=== PATIENT | female | born 1960 | race Caucasian/White ===

== ENCOUNTER 2022-11-25 07:58 | Inpatient (IN) ==
[2022-11-25 13:56] VITALS: BMI 24.1
[2022-11-25 14:05] LABS: BASOPHILS # (AUTO) 0.1 X10^3/uL (0.0-0.1); BASOPHILS % (AUTO) 0.9 % (0.2-1.0); EOSINOPHILS # (AUTO) 0.4 x10^3/uL (0.0-0.2); EOSINOPHILS % (AUTO) 5.4 % (0.9-2.9); HEMOGLOBIN 12.2 g/dL (12.0-16.0); LYMPHOCYTES # (AUTO) 1.3 X10^3/uL (1.3-2.9); LYMPHOCYTES % (AUTO) 17.4 % (21.0-51.0); MEAN CORPUSCULAR HGB CONC 33.9 g/dL (33.0-35.0); MEAN CORPUSCULAR VOLUME 91.6 fL (80.0-100.0); MONOCYTES # (AUTO) 0.6 x10^3/uL (0.3-0.8); MONOCYTES % (AUTO) 8.6 % (0.0-13.0); NEUTROPHILS # (AUTO) 5.1 x10^3/uL (2.2-4.8); NEUTROPHILS % (AUTO) 67.7 % (42.0-75.0); PLATELET COUNT 225 X10^3/uL (150.0-450.0); RED BLOOD COUNT 3.93 X10^6/uL (3.5-5.4); RED CELL DISTRIBUTION WIDTH 15.5 % (11.6-16.5); WHITE BLOOD COUNT 7.6 X10^3/uL (3.6-10.0)
[2022-11-25] MEDS: LR 1,000 ML IV 1,000 ML IV SCH (14:09)
[2022-11-25 14:14] LABS: BLOOD UREA NITROGEN 10 mg/dL (7-18); CALCIUM 9.1 mg/dL (8.5-10.1); CARBON DIOXIDE 24.7 mmol/L (21-32); CHLORIDE 101 mmol/L (98-107); CREATININE 0.93 mg/dL (0.55-1.02); GLUCOSE 75 mg/dL (65-99); POTASSIUM 4.8 mmol/L (3.5-5.1); SODIUM 136 mmol/L (136-145); eGFR NON BLACK RACES > 60 (>60)
[2022-11-25 15:09] LABS: INR 1.04 (0.8-1.3)
--- NOTE | 2022-11-25 15:28 | EKG ---
Test Reason : CAD Blood Pressure : */* mmHG Vent. Rate : 54 BPM Atrial Rate : 54 BPM P-R Int : 226 ms QRS Dur : 94 ms QT Int : 464 ms P-R-T Axes : 52 43 12 degrees QTc Int : 440 ms Sinus bradycardia with 1st degree AV block Low voltage QRS Cannot rule out Anteroseptal infarct , age undetermined Abnormal ECG No previous ECGs available Confirmed by Jimbo Gold ([id number]) on 11/29/2022 7:25:26 AM Referred By: Confirmed By: Jimbo Gold
[2022-11-25 15:34] LABS: ALANINE AMINOTRANSFERASE 11 Units/L (12-78); ALBUMIN 3.6 g/dL (3.4-5.0); ALKALINE PHOSPHATASE 92 Units/L (46-116); ASPARTATE AMINO TRANSFERASE 19 Units/L (15-37); TOTAL PROTEIN 7.3 g/dL (6.4-8.2)
[2022-11-25] MEDS ORDERED: IOHEXOL 240 MG/ML ONE (15:35)
[2022-11-25] MEDS ORDERED: NORCO 10/325 TAB PO PRN ×2 (15:38→17:22)
[2022-11-25] MEDS: NICOTINE PATCH TD SCH (15:53)
[2022-11-25] MEDS ORDERED: ZANAFLEX PO PRN (17:22)
[2022-11-25] MEDS ORDERED: ZOFRAN INJ 4 MG VIAL IVP PRN (17:27)
[2022-11-25] MEDS: ROBITUSSIN DM PO SCH ×2 (17:48→20:42)
[2022-11-25] MEDS: ROCEPHIN VIAL 1 GRAM 1 G in NS 100 ML IV 100 ML IV SCH (17:48)
--- NOTE | 2022-11-25 20:10 | CT ---
EXAM: CTA BILATERAL LOWER EXTREMITIES WITHOUT AND WITH INTRAVENOUS CONTRASTHISTORY: Ischemic leg. Leg pain.TECHNIQUE: Spiral axial CT images are obtained through the distal abdomen, pelvis and bilateral lower extremities without and with the administration of intravenous contrast. Three-dimensional coronal, sagittal, and oblique images are reformatted.DOSIMETRY: Total DLP 797.02 mGycm; CTDI 23.88 mGyCOMPARISON: None available.FINDINGS:CT ABDOMEN AND PELVIS:GASTROINTESTINAL TRACT: There is diffuse colonic diverticulosis, especially severe in the sigmoid region, without CT evidence for acute diverticulitis. No evidence for bowel herniation, bowel obstruction, appendicitis or colitis.9GENITOURINARY SYSTEM: The kidneys are unremarkable. There is no ureteral calculus or stigmata of obstructive uropathy. The urinary bladder is grossly unremarkable for a non-dedicated exam.REPRODUCTIVE SYSTEM: The uterus and adnexa appear grossly unremarkable for a CT scan. Consider follow-up dedicated imaging as clinically warranted.CT ABDOMEN: The liver, spleen, pancreas, adrenal glands, gallbladder, and inferior vena cava are within normal limits for a CT scan. There is no intra-abdominal or retroperitoneal lymphadenopathy, free fluid, or free air seen. No abdominal herniation is noted.CT PELVIS: No pelvic sidewall or inguinal lymphadenopathy is seen. No inguinal herniation is noted. No free fluid or free air is seen.BONES AND JOINTS: Multilevel DDD is seen throughout the distal thoracic and lumbar spine. The visualized bony structures are otherwise within normal limits.LUNG BASES: The lung bases are clear.CTA ABDOMEN AND PELVIS:There is severe aortoiliac atherosclerosis marked by calcified and noncalcified mural plaques. There is an infrarenal fusiform abdominal aortic aneurysm, measuring approximately 2.9 cm AP by 2.6 cm transverse by 7.4 cm CC. No evidence for aortic dissection or rupture is seen.There is severe atherosclerotic calcified mural plaque seen at the celiac axis, SMA, and renal artery origins, with suggestion of potentially hemodynamically significant severe (estimated greater than 70%) luminal stenoses (estimated critical, greater than 90%, left renal artery stenosis). Symmetrical renal cortical enhancement is seen.The JOE is not visualized and is presumed to be thrombosed. There is severe (estimated greater than 70%), presumably hemodynamically significant, left common iliac artery stenosis. Axial image 74?88, series 8. No iliac artery aneurysm is seen.CTA LOWER EXTREMITIES:There is calcified and noncalcified mural plaque seen in the right SKATING CARHOP, with severe (estimated greater than 70%), presumably hemodynamically significant, luminal stenosis. Axial image 124?134, series 8. There is severe atherosclerotic plaque seen in the left SKATING CARHOP with estimated 50% luminal stenosis, of uncertain hemodynamic significance. Axial image 126?136.There is severe calcified and noncalcified atherosclerotic mural plaque seen at the right SFA origin with critical (greater than 90%) luminal stenosis. Axial image 136?142, series 8. There is calcified and noncalcified atherosclerotic mural plaque seen in the proximal right SFA segments with multifocal critical (estimated 90%) tandem luminal stenoses. Axial image 115?170. There is distal right SFA/proximal popliteal artery occlusion/thrombosis (within the adductor canal), and contiguous occlusion of the right popliteal artery Wallstent. There is occlusion of diseased right tibioperoneal trunk. There is severe atherosclerotic disease of the visualized proximal right runoff vessels with suggestion of reconstitution of contrast opacification in the proximal segments. The middle and distal trifurcation runoff vessels are not the imaged. Correlation with MRI may be beneficial for optimal evaluation of the peripheral arteries.There is severe atherosclerotic disease of the left SFA marked by calcified and noncalcified mural plaques, with severe (estimated 90%) focal segmental stenosis in the middle SFA (axial image 192, series 8), and severe atherosclerotic disease with multilevel moderate to severe segmental stenoses seen throughout the distal left SFA, popliteal artery, and visualized proximal left trifurcation runoff vessels.IMPRESSION:1. Severe aortoiliac atherosclerosis marked by calcified and noncalcified mural plaques.2. Infrarenal fusiform abdominal aortic aneurysm, measuring approximately 2.9 cm AP by 2.6 cm transverse by 7.4 cm CC.3. Severe atherosclerotic calcified mural plaque seen at the celiac axis, SMA, and renal artery origins, with suggestion of potentially hemodynamically significant severe (estimated greater than 70%) luminal stenoses (estimated critical, greater than 90%, left renal artery stenosis). Symmetrical renal cortical enhancement is seen.4. The JOE is not visualized and is presumed to be thrombosed.5. Severe (estimated greater than 70%), presumably hemodynamically significant, left common iliac artery stenosis. Axial image 74?88, series 8.6. Calcified and noncalcified mural plaque seen in the right SKATING CARHOP, with severe (estimated greater than 70%), presumably hemodynamically significant, luminal stenosis. Axial image 124?134, series 8.7. Severe atherosclerotic plaque seen in the left SKATING CARHOP with estimated 50% luminal stenosis, of uncertain hemodynamic significance. Axial image 126?136.8. Severe calcified and noncalcified atherosclerotic mural plaque seen at the right SFA origin with critical (greater than 90%) luminal stenosis. Axial image 136?142, series 8.9. Calcified and noncalcified atherosclerotic mural plaque seen in the proximal right SFA segments with multifocal critical (estimated 90%) tandem luminal stenoses. Axial image 115?170.10. Distal right SFA/proximal popliteal artery occlusion/thrombosis (within the adductor canal), and contiguous occlusion of the right popliteal artery Wallstent.11. Occlusion of diseased right tibioperoneal trunk.12. Severe atherosclerotic disease of the visualized proximal right runoff vessels with suggestion of reconstitution of contrast opacification in the proximal segments.13. Severe atherosclerotic disease of the left SFA marked by calcified and noncalcified mural plaques, with severe (estimated 90%) focal segmental stenosis in the middle SFA (axial image 192, series 8).14. Severe atherosclerotic disease with multilevel moderate to severe segmental stenoses seen throughout the distal left SFA, popliteal artery, and visualized proximal left trifurcation runoff vessels.15. Middle and distal trifurcation runoff vessels are not imaged bilaterally. Correlation with MRI may be beneficial for optimal evaluation of the peripheral arteries.16. Diffuse colonic diverticulosis, especially severe in the sigmoid region, without CT evidence for acute diverticulitis.Electronically signed by: Nazario Lehman (Nov 25, 2022 20:08:49)
[2022-11-25] MEDS: ZOCOR TAB 40 MG PO SCH (20:42)
[2022-11-25] MEDS: LOPRESSOR TAB 25 MG PO SCH (20:42)
[2022-11-25] MEDS: PriLOSEC PO SCH (20:42)
[2022-11-25] MEDS: PEPCID TAB 40 MG PO SCH (20:42)
[2022-11-25] MEDS: BUSPAR PO SCH (20:44)
[2022-11-25] MEDS: DUONEB 0.5 MG/3 MG (3 mL) NEB SCH (21:05)
[2022-11-25] MEDS: NEURONTIN TAB 600 MG PO SCH (22:14)
[2022-11-25] MEDS: SOLU-Medrol 40 MG VIAL IVP SCH (22:14)
--- NOTE | 2022-11-26 00:26 | DR.H&P ---
H&P History & Physical for Day of: H&P Date: 11/25/22 Chief Complaint Chief Complaint: Bilateral lower extremity rest pain Allergies Allergies Allergy/AdvReac Type Severity Reaction Status Date / Time sulfamethoxazole AdvReac Verified 11/25/22 13:28 [From Bactrim] trimethoprim [From Bactrim] AdvReac Verified 11/25/22 13:28 History of Present Illness History of Present Illness: This is a 62 year old female who appears older than her stated age with significant tobacco abuse history complaining of bilateralLower extremity rest pain . She has a history of Presumed bilateral iliac artery stenting, hypertension, significant tobacco abuse and history of left caroTID endarterectomy. She denies chest pain or shortness of breath. [facility] She says her last stress test was approximately one year ago. 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 (left caroTID endarterectomy ) Family History Family Medical History: Diabetes Mellitus, Coronary Artery Disease and Hypertension Social History Does patient currently use any type of tobacco product: Yes Have you used tobacco products in the last 12 months: Yes Type of Tobacco Use: Cigarettes How many years tobacco product used: 40 Does any household member use tobacco: No Alcohol Use: Rarely Drug Use: None Medications Home Medications: Home Medications Medication Instructions Recorded Confirmed Type albuterol sulfate 90 mcg/actuation 1 inh inhalation Q6H 11/25/22 11/25/22 History aerosol inhaler budesonide 160 mcg-glycopyr 9 2 inh inhalation BID 11/25/22 11/25/22 History mcg-formot 4.8 mcg/actuation HFA inhaler (Breztri Aerosphere) buspirone 15 mg tablet 15 mg PO BID 11/25/22 11/25/22 History cholecalciferol (vitamin D3) 125 125 mcg PO DAILY 11/25/22 11/25/22 History mcg (5,000 unit) tablet (Vitamin D3) citalopram 40 mg tablet 40 mg PO QDAY 11/25/22 11/25/22 History clopidogrel 75 mg tablet 75 mg PO QDAY 11/25/22 11/25/22 History famotidine 40 mg tablet 40 mg PO BID 11/25/22 11/25/22 History gabapentin 600 mg tablet 1,200 mg PO TID 11/25/22 11/25/22 History hydrocodone 10 mg-acetaminophen 1 tab PO TID PRN 11/25/22 11/25/22 History 325 mg tablet meloxicam 7.5 mg tablet 7.5 mg PO QDAY 11/25/22 11/25/22 History metoprolol tartrate 25 mg tablet 25 mg PO BID 11/25/22 11/25/22 History montelukast 10 mg tablet 10 mg PO QDAY 11/25/22 11/25/22 History omeprazole 40 mg capsule,delayed 40 mg PO BID 11/25/22 11/25/22 History release simvastatin 40 mg tablet 40 mg PO QPM 11/25/22 11/25/22 History tizanidine 4 mg tablet 4 mg PO TID PRN 11/25/22 11/25/22 History Labs 11/25/22 13:45 11/25/22 13:45 Labs: Laboratory WBC 7.6 X10^3/uL (3.6-10.0) 11/25/22 13:45 RBC 3.93 X10^6/uL (3.5-5.4) 11/25/22 13:45 Hgb 12.2 g/dL (12.0-16.0) 11/25/22 13:45 Hct 36.0 % (36.0-47.0) 11/25/22 13:45 MCV 91.6 fL (80.0-100.0) 11/25/22 13:45 MCH 31.0 pg (27.0-34.0) 11/25/22 13:45 MCHC 33.9 g/dL (33.0-35.0) 11/25/22 13:45 RDW 15.5 % (11.6-16.5) 11/25/22 13:45 Plt Count 225 X10^3/uL (150.0-450.0) 11/25/22 13:45 MPV 7.0 fL (7.4-11.0) L 11/25/22 13:45 Neut % (Auto) 67.7 % (42.0-75.0) 11/25/22 13:45 Lymph % (Auto) 17.4 % (21.0-51.0) L 11/25/22 13:45 [place] % (Auto) 8.6 % (0.0-13.0) 11/25/22 13:45 Eos % (Auto) 5.4 % (0.9-2.9) H 11/25/22 13:45 Baso % (Auto) 0.9 % (0.2-1.0) 11/25/22 13:45 Neut # (Auto) 5.1 x10^3/uL (2.2-4.8) H 11/25/22 13:45 Lymph # (Auto) 1.3 X10^3/uL (1.3-2.9) 11/25/22 13:45 [place] # (Auto) 0.6 x10^3/uL (0.3-0.8) 11/25/22 13:45 Eos # (Auto) 0.4 x10^3/uL (0.0-0.2) H 11/25/22 13:45 Baso # (Auto) 0.1 X10^3/uL (0.0-0.1) 11/25/22 13:45 Absolute Nucleated RBC 0.0 /100WBC 11/25/22 13:45 PT 13.4 SECONDS (11.8-14.3) 11/25/22 13:45 INR Target Range - 11/25/22 13:45 INR 1.04 (0.8-1.3) 11/25/22 13:45 APTT 27.6 SECONDS (22.9-36.5) 11/25/22 13:45 PTT Comment - 11/25/22 13:45 Sodium 136 mmol/L (136-145) 11/25/22 13:45 Corrected Sodium TNP 11/25/22 13:45 Potassium 4.8 mmol/L (3.5-5.1) 11/25/22 13:45 Chloride 101 mmol/L (98-107) 11/25/22 13:45 Carbon Dioxide 24.7 mmol/L (21-32) 11/25/22 13:45 BUN 10 mg/dL (7-18) 11/25/22 13:45 Creatinine 0.93 mg/dL (0.55-1.02) 11/25/22 13:45 Est GFR (MDRD) Af Amer > 60 (>60) 11/25/22 13:45 Est GFR (MDRD) Non-Af > 60 (>60) 11/25/22 13:45 Glucose 75 mg/dL (65-99) 11/25/22 13:45 Calcium 9.1 mg/dL (8.5-10.1) 11/25/22 13:45 Corrected Calcium TNP 11/25/22 13:45 Total Bilirubin 0.20 mg/dL (0.2-1.0) 11/25/22 13:45 AST 19 Units/L (15-37) 11/25/22 13:45 ALT 11 Units/L (12-78) L 11/25/22 13:45 Alkaline Phosphatase 92 Units/L (46-116) 11/25/22 13:45 Total Protein 7.3 g/dL (6.4-8.2) 11/25/22 13:45 Albumin 3.6 g/dL (3.4-5.0) 11/25/22 13:45 Globulin 3.7 g/dL (2.5-4.5) 11/25/22 13:45 Albumin/Globulin Ratio 1.0 Ratio (1.1-2.1) L 11/25/22 13:45 Review of Systems Constitutional: See HPI Eyes: No Symptoms Reported ENT: No Symptoms Reported Respiratory: Shortness of Breath and Other (wheezing ,significant tobacco abuse ) Cardiovascular: See HPI Gastrointestinal: See HPI Genitourinary: No Symptoms Reported Musculoskeletal: No Symptoms Reported Skin: No Symptoms Reported Neurological: No Symptoms Reported Physical Exam Vital Signs: Vital Signs Temperature 97.9 F Temperature 97.5 F Pulse Rate [Left] 62 Pulse Rate [Left] 60 Pulse Rate 67 Respiratory Rate 20 Respiratory Rate 18 Respiratory Rate 20 Blood Pressure [Left Arm] 136/62 Blood Pressure [Left Arm] 133/63 O2 Sat by Pulse Oximetry 97 O2 Sat by Pulse Oximetry 97 O2 Sat by Pulse Oximetry 97 Oriented: Normal, Time, Person and Place Eyes: Normal Ear: Normal Nose: Normal Throat: Normal Respiratory: Wheezes Throughout Cardiovascular: Normal : Normal Auscultation: Bowel Sounds: Normal Palpation: Normal Tenderness: Normal Skin: Normal Musculoskeletal: Normal Psychiatric: Normal Mood Description: Calm Affect: Normal Speech Pattern: Clear Assessment/Plan (1) Atherosclerosis of [place] arteries of extremities with rest pain, right leg: Status: Acute Plan: Will admit Patient and obtain lab work and CT angiogram of the aorta with runoff. Nicotine patch. Pain control. Consult Cardiology. Consult with PCP to control her wheezing, and maximize her treatments of her various medical problems . (2) Atherosclerosis of [place] arteries of extremities with rest pain, left leg: Status: Acute Plan: as above (3) Chronic ischemic heart disease, unspecified: Status: Acute Plan: cardiology consult (4) Essential (primary) hypertension: Status: Acute Plan: home meds (5) Tobacco abuse: Status: Acute Plan: nicotine patch (6) Chronic obstructive pulmonary disease, unspecified: Status: Acute Plan: Consult Kelsey Whitaker NP (7) Gastro-esophageal reflux disease without esophagitis: Status: Acute Plan: home meds (8) Bilateral carotid artery stenosis: Status: Acute Plan: f/u carotid ultrasound
[2022-11-26] MEDS: LR 1,000 ML IV 1,000 ML IV SCH ×3 (03:01→17:21)
[2022-11-26] MEDS: SOLU-Medrol 40 MG VIAL IVP SCH ×3 (05:33→21:50)
[2022-11-26] MEDS: NEURONTIN TAB 600 MG PO SCH ×3 (05:33→21:37)
--- NOTE | 2022-11-26 08:12 | RAD ---
CHEST, PA/LAT ADULTHISTORY: sobStudy: PA and lateral views of the chest.Comparison:NoneFindings:The cardiomediastinal silhouette is normal.No focal consolidations, pleural effusions or pneumothorax. Osseous structures demonstrate no acute abnormality.IMPRESSION:1. No acute cardiopulmonary process.Electronically signed by: CECILY SALEEM (Nov 26, 2022 08:11:20)
[2022-11-26] MEDS: DUONEB 0.5 MG/3 MG (3 mL) NEB SCH ×2 (08:15→20:10)
--- NOTE | 2022-11-26 08:23 | DR.CONSULT ---
CONSULT Consultation for Day of: Date: 11/26/22 Chief Complaint Chief Complaint: leg pain/sob Allergies Allergies Allergy/AdvReac Type Severity Reaction Status Date / Time sulfamethoxazole AdvReac Verified 11/25/22 13:28 [From Bactrim] trimethoprim [From Bactrim] AdvReac Verified 11/25/22 13:28 History of Present Illness History of Present Illness: 62 yo female- needs leg revascularization- has carotid/coronary and PVD- still smokes- recent cath 10/15/22 showed total occlusion RCA, left system ok, normal PA pressures at 25, 18 mm gradient across AoV, severe B leg disease, 50% carotid disease.on bb/asa/statin Past Medical History Past Medical History: Anxiety, Arthritis, COPD, Coronary Artery Disease, Dyslipidemia, GERD, Hypertension and Renal Disease Past Surgical History 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 and 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 (left caroTID endarterectomy ) Family History Family Medical History: Diabetes Mellitus, Coronary Artery Disease and Hypertension Social History Does patient currently use any type of tobacco product: Yes Have you used tobacco products in the last 12 months: Yes Type of Tobacco Use: Cigarettes How many years tobacco product used: 40 Does any household member use tobacco: No Alcohol Use: Rarely Drug Use: None Medications Home Medications: sulfamethoxazole [From Bactrim] Adverse Reaction (Verified 11/25/22 13:28) trimethoprim [From Bactrim] Adverse Reaction (Verified 11/25/22 13:28) CONTINUE taking the following medications albuterol sulfate 90 mcg/actuation aerosol inhaler 1 inh inhalation Q6H 11/25/22 [History] budesonide 160 mcg-glycopyr 9 mcg-formot 4.8 mcg/actuation HFA inhaler (Breztri Aerosphere) 2 inh inhalation BID 11/25/22 [History] buspirone 15 mg tablet 15 mg PO BID 11/25/22 [History] cholecalciferol (vitamin D3) 125 mcg (5,000 unit) tablet (Vitamin D3) 125 mcg PO DAILY 11/25/22 [History] citalopram 40 mg tablet 40 mg PO QDAY 11/25/22 [History] clopidogrel 75 mg tablet 75 mg PO QDAY 11/25/22 [History] famotidine 40 mg tablet 40 mg PO BID 11/25/22 [History] gabapentin 600 mg tablet 1,200 mg PO TID 11/25/22 [History] hydrocodone 10 mg-acetaminophen 325 mg tablet 1 tab PO TID PRN 11/25/22 [History] meloxicam 7.5 mg tablet 7.5 mg PO QDAY 11/25/22 [History] metoprolol tartrate 25 mg tablet 25 mg PO BID 11/25/22 [History] montelukast 10 mg tablet 10 mg PO QDAY 11/25/22 [History] omeprazole 40 mg capsule,delayed release 40 mg PO BID 11/25/22 [History] simvastatin 40 mg tablet 40 mg PO QPM 11/25/22 [History] tizanidine 4 mg tablet 4 mg PO TID PRN 11/25/22 [History] Physical Exam Vital Signs: Vital Signs Temperature 97.8 F Pulse Rate [Left] 61 Respiratory Rate 20 Blood Pressure [Left Arm] 152/67 O2 Sat by Pulse Oximetry 94 alert ox3 nad B bruits in neck , clear lungs with some minimal exp wheeze, 2/6 aortic stenosis murmur, 1/6 hsm soft abdomen, poor pulses in feet/warm feet Plan (1) Atherosclerosis of [place] arteries of extremities with rest pain, right leg: Status: Acute (2) Atherosclerosis of [place] arteries of extremities with rest pain, left leg: Status: Acute (3) Chronic ischemic heart disease, unspecified: Status: Acute (4) Essential (primary) hypertension: Status: Acute (5) Tobacco abuse: Status: Acute (6) Chronic obstructive pulmonary disease, unspecified: Status: Acute (7) Gastro-esophageal reflux disease without esophagitis: Status: Acute (8) Bilateral carotid artery stenosis: Status: Acute (9) Aortic stenosis: Status: Acute (10) CAD (coronary artery disease): Status: Acute (11) Preop cardiovascular exam: Status: Acute Narrative Support Text: Acceptable cv risk. cont plavix/statin/bb- add ccb/nitro around periop for collateral dependant ischemia to rca.
[2022-11-26] MEDS ORDERED: VISTARIL PO PRN (08:56)
[2022-11-26] MEDS ORDERED: NORVASC TAB 2.5 MG ONE (08:56)
[2022-11-26] MEDS: LOPRESSOR TAB 25 MG PO SCH ×2 (09:04→22:02)
[2022-11-26] MEDS: PEPCID TAB 40 MG PO SCH ×2 (09:05→21:32)
[2022-11-26] MEDS: PriLOSEC PO SCH ×2 (09:05→21:31)
[2022-11-26] MEDS: SINGULAIR TAB 10 MG PO SCH (09:06)
[2022-11-26] MEDS: PLAVIX PO SCH (09:06)
[2022-11-26] MEDS: CELEXA PO SCH (09:06)
[2022-11-26] MEDS: LOVENOX INJ 40 MG SYR SC SCH (09:06)
[2022-11-26] MEDS: BUSPAR PO SCH ×2 (09:07→21:31)
[2022-11-26] MEDS: NORVASC TAB 2.5 MG PO SCH (09:07)
[2022-11-26] MEDS: ROCEPHIN VIAL 1 GRAM 1 G in NS 100 ML IV 100 ML IV SCH (09:08)
[2022-11-26] MEDS: ROBITUSSIN DM PO SCH ×4 (09:08→21:28)
[2022-11-26] MEDS: NICOTINE PATCH TD SCH (09:09)
[2022-11-26] MEDS: NITRODUR PATCH 0.1 MG/HR TD SCH (11:24)
--- NOTE | 2022-11-26 11:38 | VAS ---
HISTORYpre op, hx left endarderetomySTUDYCAROTID USCOMPARISONNone.TECHNIQUERealtime ultrasound, color doppler flow study and the spectral analysis.FINDINGSRIGHT:The maximum peak systolic velocity of the right PROXIMAL common carotid artery is 165 cm per second.The maximum peak systolic velocity of the right DISTAL common carotid artery is 91 cm per second.The maximum peak systolic velocity of the right PROXIMAL internal carotid artery is 166 cm per second.The maximum peak systolic velocity of the right MID internal carotid artery is 192 cm per second.The maximum peak systolic velocity of the right DISTAL internal carotid artery is 140 cm per second.The maximum peak systolic velocity of the right external carotid artery is 186 cm per second.The peak systolic velocity ratio of the right ICA/CCA ratio is 1.16.LEFT:The maximum peak systolic velocity of the left PROXIMAL common carotid artery is 22 cm per second.The maximum peak systolic velocity of the left DISTAL common carotid artery is 20 cm per second.The maximum end diastolic velocity of the left PROXIMAL internal carotid artery is 49 cm per second.The maximum end diastolic velocity of the left MID internal carotid artery is 40 cm per second.The maximum end diastolic velocity of the left DISTAL internal carotid artery is 53 cm per second.The maximum peak systolic velocity of the left external carotid artery is 106 cm per second. There is reversed flow in left external carotid artery.The peak systolic velocity ratio of the left ICA/CCA is 2.15.There is a large amount of plaque in the bilateral CCA's and ICAs.The vertebral arteries are patent and demonstrate normal [antegrade] flow bilaterally.IMPRESSIONRight ICA and CCA velocities correspond to moderate (50-69 percent) stenosis.Left ICA velocities and CCA velocities are low with reversed left ECA flow. This can be seen with severe stenosis. Consider CTA neck for further evaluation as clinically warranted.Electronically signed by: Harrison Chi (Nov 26, 2022 11:33:22)
[2022-11-26] MEDS: NORCO 10/325 TAB PO PRN ×3 (12:03→22:39)
[2022-11-26] MEDS: ZOCOR TAB 40 MG PO SCH (21:28)
[2022-11-27] MEDS: NEURONTIN TAB 600 MG PO SCH ×3 (05:24→21:31)
[2022-11-27] MEDS: SOLU-Medrol 40 MG VIAL IVP SCH (05:24)
[2022-11-27 05:40] LABS: BASOPHILS % (AUTO) 0.1 % (0.2-1.0); HEMATOCRIT 28.8 % (36.0-47.0); LYMPHOCYTES # (AUTO) 0.4 X10^3/uL (1.3-2.9); LYMPHOCYTES % (AUTO) 7.8 % (21.0-51.0); MEAN CORPUSCULAR HEMOGLOBIN 31.6 pg (27.0-34.0); MEAN CORPUSCULAR HGB CONC 34.5 g/dL (33.0-35.0); MEAN CORPUSCULAR VOLUME 91.6 fL (80.0-100.0); MONOCYTES # (AUTO) 0.1 x10^3/uL (0.3-0.8); MONOCYTES % (AUTO) 2.1 % (0.0-13.0); NEUTROPHILS # (AUTO) 5.2 x10^3/uL (2.2-4.8); PLATELET COUNT 195 X10^3/uL (150.0-450.0); RED BLOOD COUNT 3.14 X10^6/uL (3.5-5.4); RED CELL DISTRIBUTION WIDTH 15.7 % (11.6-16.5); WHITE BLOOD COUNT 5.7 X10^3/uL (3.6-10.0)
[2022-11-27 05:41] LABS: HEMOGLOBIN 9.9 g/dL (12.0-16.0)
[2022-11-27 05:54] LABS: ALANINE AMINOTRANSFERASE 6 Units/L (12-78); ALBUMIN 3.1 g/dL (3.4-5.0); ALKALINE PHOSPHATASE 71 Units/L (46-116); ASPARTATE AMINO TRANSFERASE 11 Units/L (15-37); BLOOD UREA NITROGEN 11 mg/dL (7-18); CALCIUM 7.9 mg/dL (8.5-10.1); CARBON DIOXIDE 24.4 mmol/L (21-32); CHLORIDE 105 mmol/L (98-107); COR CA(FOR HYPOALB) 8.6 mg/dL (8.5-10.1); COR NA(FOR HYPERGLY) 142 mmol/L (136-145); CREATININE 1.04 mg/dL (0.55-1.02); GLUCOSE 182 mg/dL (65-99); POTASSIUM 4.2 mmol/L (3.5-5.1); SODIUM 140 mmol/L (136-145); TOTAL PROTEIN 6.3 g/dL (6.4-8.2); eGFR NON BLACK RACES 57 (>60)
[2022-11-27] MEDS ORDERED: NORVASC TAB 2.5 MG ONE (08:05)
--- NOTE | 2022-11-27 08:41 | RAD ---
HISTORYCOPDSTUDYAP chestCO MPARISONAugust 2022FINDINGSHeart size normal with no definite developing infiltrate, or congestion. There is now minimal blunting of the left costophrenic angle, previously normal.IMPRESSIONNo significant cardiac or pulmonary lesion noted. Slight blunting of the left costophrenic angle now noted, consistent with minimal atelectasis and/or effusion.Electronically signed by: ROLY YADAV (Nov 27, 2022 08:39:42)
[2022-11-27] MEDS: DUONEB 0.5 MG/3 MG (3 mL) NEB SCH ×2 (08:54→20:55)
[2022-11-27] MEDS: LR 1,000 ML IV 1,000 ML IV SCH ×2 (09:32→17:22)
[2022-11-27] MEDS: ROBITUSSIN DM PO SCH ×4 (09:37→20:36)
[2022-11-27] MEDS: PLAVIX PO SCH (09:37)
[2022-11-27] MEDS: PriLOSEC PO SCH ×2 (09:37→20:37)
[2022-11-27] MEDS: LOPRESSOR TAB 25 MG PO SCH ×2 (09:38→20:38)
[2022-11-27] MEDS: PEPCID TAB 40 MG PO SCH ×2 (09:38→20:38)
[2022-11-27] MEDS: SINGULAIR TAB 10 MG PO SCH (09:38)
[2022-11-27] MEDS: CELEXA PO SCH (09:38)
[2022-11-27] MEDS: NORVASC TAB 2.5 MG PO SCH (09:38)
[2022-11-27] MEDS: LOVENOX INJ 40 MG SYR SC SCH (09:39)
[2022-11-27] MEDS: NICOTINE PATCH TD SCH (09:40)
[2022-11-27] MEDS: BUSPAR PO SCH ×2 (09:41→20:36)
[2022-11-27] MEDS: ROCEPHIN VIAL 1 GRAM 1 G in NS 100 ML IV 100 ML IV SCH (09:41)
[2022-11-27] MEDS: NITRODUR PATCH 0.1 MG/HR TD SCH (09:59)
[2022-11-27] MEDS: NORCO 10/325 TAB PO PRN ×2 (12:24→18:05)
[2022-11-27] MEDS ORDERED: TYLENOL 325 MG TAB PO PRN (14:03)
[2022-11-27] MEDS: ZOCOR TAB 40 MG PO SCH (20:37)
[2022-11-28] MEDS: NORCO 10/325 TAB PO PRN ×4 (00:13→23:56)
[2022-11-28] MEDS: NEURONTIN TAB 600 MG PO SCH ×3 (06:08→21:25)
[2022-11-28] MEDS: LR 1,000 ML IV 1,000 ML IV SCH ×2 (06:09→20:47)
[2022-11-28 06:11] LABS: BASOPHILS % (AUTO) 0.3 % (0.2-1.0); EOSINOPHILS % (AUTO) 0.4 % (0.9-2.9); HEMATOCRIT 28.7 % (36.0-47.0); HEMOGLOBIN 9.7 g/dL (12.0-16.0); LYMPHOCYTES # (AUTO) 1.3 X10^3/uL (1.3-2.9); MEAN CORPUSCULAR HEMOGLOBIN 31.3 pg (27.0-34.0); MEAN CORPUSCULAR HGB CONC 33.8 g/dL (33.0-35.0); MEAN CORPUSCULAR VOLUME 92.7 fL (80.0-100.0); MEAN PLATELET VOLUME 7.1 fL (7.4-11.0); MONOCYTES # (AUTO) 0.4 x10^3/uL (0.3-0.8); MONOCYTES % (AUTO) 7.8 % (0.0-13.0); NEUTROPHILS # (AUTO) 3.9 x10^3/uL (2.2-4.8); NEUTROPHILS % (AUTO) 68.5 % (42.0-75.0); PLATELET COUNT 188 X10^3/uL (150.0-450.0); RED BLOOD COUNT 3.09 X10^6/uL (3.5-5.4); RED CELL DISTRIBUTION WIDTH 15.8 % (11.6-16.5); WHITE BLOOD COUNT 5.7 X10^3/uL (3.6-10.0)
[2022-11-28 06:26] LABS: ALANINE AMINOTRANSFERASE 7 Units/L (12-78); ALKALINE PHOSPHATASE 58 Units/L (46-116); ASPARTATE AMINO TRANSFERASE 14 Units/L (15-37); BLOOD UREA NITROGEN 12 mg/dL (7-18); CALCIUM 7.9 mg/dL (8.5-10.1); CARBON DIOXIDE 31.6 mmol/L (21-32); CHLORIDE 106 mmol/L (98-107); COR CA(FOR HYPOALB) 8.7 mg/dL (8.5-10.1); COR NA(FOR HYPERGLY) 142 mmol/L (136-145); CREATININE 0.94 mg/dL (0.55-1.02); GLUCOSE 111 mg/dL (65-99); SODIUM 142 mmol/L (136-145); TOTAL PROTEIN 5.9 g/dL (6.4-8.2); eGFR NON BLACK RACES > 60 (>60)
[2022-11-28] MEDS: DUONEB 0.5 MG/3 MG (3 mL) NEB SCH ×2 (08:12→20:24)
[2022-11-28] MEDS ORDERED: NORVASC TAB 2.5 MG ONE (08:22)
[2022-11-28] MEDS: ROCEPHIN VIAL 1 GRAM 1 G in NS 100 ML IV 100 ML IV SCH (08:53)
[2022-11-28] MEDS: ROBITUSSIN DM PO SCH ×4 (08:54→20:49)
[2022-11-28] MEDS: PLAVIX PO SCH (08:54)
[2022-11-28] MEDS: NICOTINE PATCH TD SCH (08:54)
[2022-11-28] MEDS: PriLOSEC PO SCH ×2 (08:54→20:47)
[2022-11-28] MEDS: PEPCID TAB 40 MG PO SCH ×2 (08:55→20:48)
[2022-11-28] MEDS: LOPRESSOR TAB 25 MG PO SCH ×2 (08:55→20:48)
[2022-11-28] MEDS: BUSPAR PO SCH ×2 (08:55→20:47)
[2022-11-28] MEDS: CELEXA PO SCH (08:55)
[2022-11-28] MEDS: NORVASC TAB 2.5 MG PO SCH (08:55)
[2022-11-28] MEDS: NITRODUR PATCH 0.1 MG/HR TD SCH (08:56)
[2022-11-28] MEDS: SINGULAIR TAB 10 MG PO SCH (08:57)
[2022-11-28] MEDS: ZOCOR TAB 40 MG PO SCH (20:48)
[2022-11-29] MEDS: NEURONTIN TAB 600 MG PO SCH ×3 (05:04→21:40)
[2022-11-29 05:06] LABS: BASOPHILS % (AUTO) 0.6 % (0.2-1.0); EOSINOPHILS # (AUTO) 0.2 x10^3/uL (0.0-0.2); EOSINOPHILS % (AUTO) 2.8 % (0.9-2.9); HEMATOCRIT 28.3 % (36.0-47.0); HEMOGLOBIN 9.6 g/dL (12.0-16.0); LYMPHOCYTES # (AUTO) 1.5 X10^3/uL (1.3-2.9); MEAN CORPUSCULAR HEMOGLOBIN 31.5 pg (27.0-34.0); MEAN CORPUSCULAR VOLUME 92.5 fL (80.0-100.0); MEAN PLATELET VOLUME 6.8 fL (7.4-11.0); MONOCYTES # (AUTO) 0.5 x10^3/uL (0.3-0.8); MONOCYTES % (AUTO) 8.6 % (0.0-13.0); NEUTROPHILS # (AUTO) 3.7 x10^3/uL (2.2-4.8); PLATELET COUNT 196 X10^3/uL (150.0-450.0); RED BLOOD COUNT 3.07 X10^6/uL (3.5-5.4); RED CELL DISTRIBUTION WIDTH 15.8 % (11.6-16.5)
[2022-11-29 05:17] LABS: ALANINE AMINOTRANSFERASE 9 Units/L (12-78); ALBUMIN 2.9 g/dL (3.4-5.0); ALKALINE PHOSPHATASE 58 Units/L (46-116); ASPARTATE AMINO TRANSFERASE 13 Units/L (15-37); BLOOD UREA NITROGEN 10 mg/dL (7-18); CALCIUM 7.7 mg/dL (8.5-10.1); CARBON DIOXIDE 32.2 mmol/L (21-32); CHLORIDE 104 mmol/L (98-107); COR CA(FOR HYPOALB) 8.6 mg/dL (8.5-10.1); CREATININE 0.91 mg/dL (0.55-1.02); GLUCOSE 83 mg/dL (65-99); POTASSIUM 4.4 mmol/L (3.5-5.1); SODIUM 141 mmol/L (136-145); TOTAL PROTEIN 5.7 g/dL (6.4-8.2); eGFR NON BLACK RACES > 60 (>60)
[2022-11-29] MEDS: DUONEB 0.5 MG/3 MG (3 mL) NEB SCH ×2 (08:00→20:51)
[2022-11-29] MEDS: NICOTINE PATCH TD SCH (10:00)
[2022-11-29] MEDS: ROCEPHIN VIAL 1 GRAM 1 G in NS 100 ML IV 100 ML IV SCH (10:08)
[2022-11-29] MEDS: LR 1,000 ML IV 1,000 ML IV SCH ×2 (10:08→21:40)
[2022-11-29] MEDS: ROBITUSSIN DM PO SCH ×4 (10:13→20:12)
[2022-11-29] MEDS: BUSPAR PO SCH ×2 (10:16→20:13)
[2022-11-29] MEDS: CELEXA PO SCH (10:17)
[2022-11-29] MEDS: LOPRESSOR TAB 25 MG PO SCH ×3 (10:17→20:17)
[2022-11-29] MEDS: NITRODUR PATCH 0.1 MG/HR TD SCH (10:18)
[2022-11-29] MEDS: NORVASC TAB 2.5 MG PO SCH ×2 (10:19→12:09)
[2022-11-29] MEDS: PLAVIX PO SCH (10:19)
[2022-11-29] MEDS: PriLOSEC PO SCH ×2 (10:19→20:16)
[2022-11-29] MEDS: PEPCID TAB 40 MG PO SCH ×2 (10:19→20:17)
[2022-11-29] MEDS: SINGULAIR TAB 10 MG PO SCH (10:20)
[2022-11-29] MEDS ORDERED: NORVASC TAB 2.5 MG ONE (12:05)
[2022-11-29] MEDS ORDERED: KETAMINE 50 MG/5 ML-NACL SYRNG ONE (13:43)
[2022-11-29] MEDS ORDERED: ANCEF VIAL 1 GRAM ONE (14:07)
[2022-11-29] MEDS ORDERED: LR 1,000 ML IV 1,000 ML IV ONE (14:07)
[2022-11-29] MEDS ORDERED: NS 100 ML IV 100 ML ONE (14:08)
[2022-11-29] MEDS ORDERED: MARCAINE 0.5% ONE (14:19)
[2022-11-29] MEDS ORDERED: HEPARIN SODIUM IN D5W 75,000 UNITS/1,500 ML BAG ONE (14:19)
[2022-11-29] MEDS ORDERED: FENTANYL VIAL INJ 100 mcg ONE (14:29)
[2022-11-29] MEDS ORDERED: VERSED ONE ×2 (14:29→16:17)
[2022-11-29] MEDS ORDERED: DIPRIVAN VIAL 20 ML ONE ×2 (14:29→16:19)
[2022-11-29] MEDS ORDERED: VISIPAQUE 100 ML ONE (14:43)
[2022-11-29] MEDS ORDERED: HEPARIN SODIUM INJ 5000 UNITS ONE ×2 (15:09→16:24)
[2022-11-29] MEDS ORDERED: EPHEDRINE SULFATE INJ ONE (15:28)
[2022-11-29] MEDS ORDERED: NS 1,000 ML IV 1,000 ML ONE (15:45)
[2022-11-29] MEDS ORDERED: TORADOL 30 MG VIAL ONE (16:10)
[2022-11-29] MEDS ORDERED: PROTAMINE SULFATE 50 MG VIAL ONE (16:48)
--- NOTE | 2022-11-29 17:19 | OR.IMMED ---
IMMEDIATE POST-OP NOTE Immediate Post-Op Note Pre-Op Diagnosis: Critical ischemia both legs, right worse than left Post-Op Diagnosis: same Procedure: diagnostic aortogram, diagnostic arteriogram right lower extremity ,atherectomy and drug-coated balloon angioplasty of the right tibial peroneal trunk, atherectomy and drug-coated balloon angioplasty right popliteal artery ,atherectomy and drug-coated balloon angioplasty right superficial femoral artery occluded stent ,atherectomy and drug-coated balloon angioplasty right common femoral artery and Stenting left common iliac artery Description of Procedure: see operative summary Surgeon/Land Economist: Brent Findings: severe stenosis greater than 80% of the left common iliac artery, severe stenosis right common femoral artery greater than 70%, completely occluded right superficial femoral artery stent ,complicated right popliteal artery and occluded right tibial peroneal trunk with three vessels run off of the right leg Estimated Blood Loss: 150cc Complications: none Progress Notes: return to floor. Begin all usual home medications. Probably discharge tomorrow. Left leg will need arterial intervention in the future.
--- NOTE | 2022-11-29 18:01 | PCM.PROG ---
Progress Note - Progress Note for Day of Date of Exam: 11/29/22 - Subjective Subjective: PT IS 62 WF, PENDING VASCULAR INTERVENTION OF SEVERE PAD PER DR IRVING. PT IS NPO THIS AM. PT WAS TREATED FOR COPD EXACERBATION SYMPTOMS ON ADMISSION WITH IV ROCEPHIN AND SOLU- MEDROL IV. PTS CXR WAS CLEAR WITHOUT INFILTRATES OR ACUTE CARDIOPULMONARY DISEASE. PT WAS CLEARED FOR VASCULAR SUGERY PER CARDIOLOGY AND MEDICAL. PT DENIES ANY CHEST PAIN OR SOB AT REST THIS AM. SHE HAS BEEN AFREBRILE AND DENIES ANY ACUTE COMPLAINTS THIS MORNING. WE REVIEWED LABS AND VITAL SIGNS. - Past Medical Family Social History Past Med/Fam/Surg Hx: No changes since H&P Allergies: Allergies sulfamethoxazole [From Bactrim] Adverse Reaction (Verified 11/25/22 13:28) trimethoprim [From Bactrim] Adverse Reaction (Verified 11/25/22 13:28) - Review of Systems ROS: No change since H&P - Vital Signs and I&O's Vital Signs: Vital Signs Temperature 98.0 F Pulse Rate [Left] 79 Pulse Rate 66 Respiratory Rate 16 Respiratory Rate 17 Respiratory Rate 20 Blood Pressure [Right Arm] 185/81 Blood Pressure 135/77 O2 Sat by Pulse Oximetry 95 O2 Sat by Pulse Oximetry 92 Intake and Output: Intake & Output 11/27/22 11/28/22 11/29/22 11/30/22 11:59 11:59 11:59 11:59 Intake Total 1790 / 1790 3837 / 3837 3980 / 3980 300 / 300 Output Total 150 / 150 Balance 1790 / 1790 3837 / 3837 3980 / 3980 150 / 150 - Physical Exam Oriented: Normal, Time, Person, Place Eyes: Normal Ear: Normal Nose: Normal Throat: Normal Respiratory: Diminished, Wheezes (MILD LOWER EXPIRATORY WHEEZES) Cardiovascular: Normal : Normal Auscultation: Bowel Sounds: Normal Tenderness: Normal Skin: Normal Musculoskeletal: Normal Psychiatric: Normal Mood Description: Calm Affect: Normal Speech Pattern: Clear, Appropriate - Laboratory and Diagnostics Result Diagrams: 11/29/22 04:40 11/29/22 04:40 Labs: Laboratory WBC 6.0 X10^3/uL (3.6-10.0) 11/29/22 04:40 RBC 3.07 X10^6/uL (3.5-5.4) L 11/29/22 04:40 Hgb 9.6 g/dL (12.0-16.0) L 11/29/22 04:40 Hct 28.3 % (36.0-47.0) L 11/29/22 04:40 MCV 92.5 fL (80.0-100.0) 11/29/22 04:40 MCH 31.5 pg (27.0-34.0) 11/29/22 04:40 MCHC 34.0 g/dL (33.0-35.0) 11/29/22 04:40 RDW 15.8 % (11.6-16.5) 11/29/22 04:40 Plt Count 196 X10^3/uL (150.0-450.0) 11/29/22 04:40 MPV 6.8 fL (7.4-11.0) L 11/29/22 04:40 Neut % (Auto) 62.0 % (42.0-75.0) 11/29/22 04:40 Lymph % (Auto) 26.0 % (21.0-51.0) 11/29/22 04:40 [place] % (Auto) 8.6 % (0.0-13.0) 11/29/22 04:40 Eos % (Auto) 2.8 % (0.9-2.9) 11/29/22 04:40 Baso % (Auto) 0.6 % (0.2-1.0) 11/29/22 04:40 Neut # (Auto) 3.7 x10^3/uL (2.2-4.8) 11/29/22 04:40 Lymph # (Auto) 1.5 X10^3/uL (1.3-2.9) 11/29/22 04:40 [place] # (Auto) 0.5 x10^3/uL (0.3-0.8) 11/29/22 04:40 Eos # (Auto) 0.2 x10^3/uL (0.0-0.2) 11/29/22 04:40 Baso # (Auto) 0.0 X10^3/uL (0.0-0.1) 11/29/22 04:40 Absolute Nucleated RBC 0.0 /100WBC 11/29/22 04:40 PT 13.4 SECONDS (11.8-14.3) 11/25/22 13:45 INR Target Range - 11/25/22 13:45 INR 1.04 (0.8-1.3) 11/25/22 13:45 APTT 27.6 SECONDS (22.9-36.5) 11/25/22 13:45 PTT Comment - 11/25/22 13:45 Sodium 141 mmol/L (136-145) 11/29/22 04:40 Corrected Sodium TNP 11/29/22 04:40 Potassium 4.4 mmol/L (3.5-5.1) 11/29/22 04:40 Chloride 104 mmol/L (98-107) 11/29/22 04:40 Carbon Dioxide 32.2 mmol/L (21-32) H 11/29/22 04:40 BUN 10 mg/dL (7-18) 11/29/22 04:40 Creatinine 0.91 mg/dL (0.55-1.02) 11/29/22 04:40 Est GFR (MDRD) Af Amer > 60 (>60) 11/29/22 04:40 Est GFR (MDRD) Non-Af > 60 (>60) 11/29/22 04:40 Glucose 83 mg/dL (65-99) 11/29/22 04:40 Calcium 7.7 mg/dL (8.5-10.1) L 11/29/22 04:40 Corrected Calcium 8.6 mg/dL (8.5-10.1) 11/29/22 04:40 Total Bilirubin 0.20 mg/dL (0.2-1.0) 11/29/22 04:40 AST 13 Units/L (15-37) L 11/29/22 04:40 ALT 9 Units/L (12-78) L 11/29/22 04:40 Alkaline Phosphatase 58 Units/L (46-116) 11/29/22 04:40 Total Protein 5.7 g/dL (6.4-8.2) L 11/29/22 04:40 Albumin 2.9 g/dL (3.4-5.0) L 11/29/22 04:40 Globulin 2.8 g/dL (2.5-4.5) 11/29/22 04:40 Albumin/Globulin Ratio 1.0 Ratio (1.1-2.1) L 11/29/22 04:40 - Plan (1) Chronic obstructive pulmonary disease, unspecified Status: Acute Qualifiers: COPD type: chronic bronchitis Plan: STABLE FOR VASCULAR INTERVENTION, KEEP NPO. CONTINUE DUO NEBS. BP MONITORING (2) Atherosclerosis of [place] arteries of extremities with rest pain, left leg Status: Acute Plan: as above (3) Atherosclerosis of [place] arteries of extremities with rest pain, right leg Status: Acute (4) Gastro-esophageal reflux disease without esophagitis Status: Acute Plan: home meds (5) Essential (primary) hypertension Status: Acute Plan: home meds
[2022-11-29] MEDS: ZOCOR TAB 40 MG PO SCH (20:15)
[2022-11-29] MEDS: NORCO 10/325 TAB PO PRN (20:18)
--- NOTE | 2022-11-30 00:12 | NOTE.SOAP ---
Soap Note Note for Day of Date of Exam: 11/29/22 Subjective Data Subjective Data: s/p arterial intervention right leg earlier today. Had some bleeding from left femoral artery puncture , stopped with pressure and sand bag. No hematoma Objective Data Temperature: 97.1 F Pulse Rate: 63 Respiratory Rate: 25 Blood Pressure: 128/89 O2 Sat by Pulse Oximetry: 97 Objective Data: [employer] hematoma left groin puncture site . Palpable right dorsalis pedis pulse. Assessment Assessment: s/p arterial intervention right leg. Doing well. Plan Plan: CBC and BMP in AM
[2022-11-30] MEDS: LR 1,000 ML IV 1,000 ML IV SCH ×2 (03:56→11:07)
[2022-11-30] MEDS: NEURONTIN TAB 600 MG PO SCH (05:01)
[2022-11-30] MEDS: NORCO 10/325 TAB PO PRN (05:06)
[2022-11-30 05:36] LABS: BASOPHILS # (AUTO) 0.1 X10^3/uL (0.0-0.1); BASOPHILS % (AUTO) 0.7 % (0.2-1.0); EOSINOPHILS # (AUTO) 0.4 x10^3/uL (0.0-0.2); EOSINOPHILS % (AUTO) 5.3 % (0.9-2.9); HEMATOCRIT 29.7 % (36.0-47.0); LYMPHOCYTES # (AUTO) 1.4 X10^3/uL (1.3-2.9); LYMPHOCYTES % (AUTO) 19.9 % (21.0-51.0); MEAN CORPUSCULAR HGB CONC 33.8 g/dL (33.0-35.0); MEAN CORPUSCULAR VOLUME 91.7 fL (80.0-100.0); MEAN PLATELET VOLUME 6.8 fL (7.4-11.0); MONOCYTES # (AUTO) 0.4 x10^3/uL (0.3-0.8); MONOCYTES % (AUTO) 5.9 % (0.0-13.0); NEUTROPHILS # (AUTO) 4.8 x10^3/uL (2.2-4.8); NEUTROPHILS % (AUTO) 68.2 % (42.0-75.0); PLATELET COUNT 238 X10^3/uL (150.0-450.0); RED BLOOD COUNT 3.24 X10^6/uL (3.5-5.4); RED CELL DISTRIBUTION WIDTH 15.2 % (11.6-16.5)
[2022-11-30 05:43] LABS: BLOOD UREA NITROGEN 10 mg/dL (7-18); CALCIUM 8.3 mg/dL (8.5-10.1); CARBON DIOXIDE 29.9 mmol/L (21-32); CHLORIDE 101 mmol/L (98-107); CREATININE 0.88 mg/dL (0.55-1.02); GLUCOSE 80 mg/dL (65-99); POTASSIUM 3.8 mmol/L (3.5-5.1); SODIUM 138 mmol/L (136-145); eGFR NON BLACK RACES > 60 (>60)
[2022-11-30] MEDS ORDERED: CONSULT PHARMACY - POTASSIUM & MAGNESIUM XX SCH (06:00)
[2022-11-30] MEDS: DUONEB 0.5 MG/3 MG (3 mL) NEB SCH (08:27)
[2022-11-30 08:28] VITALS: O2SAT 98
[2022-11-30] MEDS ORDERED: NORVASC TAB 2.5 MG ONE (09:00)
[2022-11-30] MEDS ORDERED: K-DUR TAB 20 MEQ PO ONE (09:00)
[2022-11-30] MEDS: NICOTINE PATCH TD SCH (09:08)
[2022-11-30] MEDS: NITRODUR PATCH 0.1 MG/HR TD SCH (09:09)
[2022-11-30] MEDS ORDERED: MORPHINE SULFATE INJ 2 MG INJ IVP ONE (09:09)
[2022-11-30] MEDS: ROCEPHIN VIAL 1 GRAM 1 G in NS 100 ML IV 100 ML IV SCH (09:09)
[2022-11-30] MEDS: SINGULAIR TAB 10 MG PO SCH (09:10)
[2022-11-30] MEDS: PriLOSEC PO SCH (09:10)
[2022-11-30] MEDS: NORVASC TAB 2.5 MG PO SCH ×2 (09:10→11:53)
[2022-11-30] MEDS: LOPRESSOR TAB 25 MG PO SCH (09:11)
[2022-11-30] MEDS: ROBITUSSIN DM PO SCH (09:11)
[2022-11-30] MEDS: PLAVIX PO SCH (09:11)
[2022-11-30] MEDS: CELEXA PO SCH (09:11)
[2022-11-30] MEDS: BUSPAR PO SCH (09:11)
[2022-11-30] MEDS: PEPCID TAB 40 MG PO SCH (09:11)
[2022-11-30 09:57] VITALS: BP 90/53; PULSE 65; TEMP 97.9
--- NOTE | 2022-11-30 10:56 | W.DIS.FURT ---
Summary of Discharge Discharge Summary of Date Date of Exam: 11/30/22 Admission Date Date of Admission: 11/24/22 Admission Diagnosis Patient Problems (Updated 11/29/22 @ 18:01 by BETO MONTAÑO) Atherosclerosis of [place] arteries of extremities with rest pain, left leg (Acute) I70.222 Atherosclerosis of [place] arteries of extremities with rest pain, right leg (Acute) I70.221 Gastro-esophageal reflux disease without esophagitis (Acute) K21.9 Chronic obstructive pulmonary disease, unspecified (Acute) J44.9 Essential (primary) hypertension (Acute) I10 Hospital Course: 62 year old female who was seen in my office on November 24 complaining of severe disabling rest pain of the right leg. She had no audible or palpable pulses of the right leg. She also has left leg rest pain with no pulses were noted. Past history of coronary artery disease. She was admitted and underwent routine laboratory evaluation and CT angiogram showing severe disease of the iliac arteries bilaterally ,severe stenosis right common femoral artery, occluded right superficial femoral artery stent and occluded right popliteal and tibial peroneal trunk arteries. The left leg also shows significant disease of the superficial femoral and popliteal arteries . She had cardiac evaluation by .She had a cardiac catherization in September of this year with shows an occluded right coronary artery but otherwise was normal. Ejection fraction is 49%. She is a chronic smoker and was wheezing significantly. We consulted her PCP, Kelsey Montaño who treated and improved her respiratory status .She was taken to the operating Suite on November 29 where she aortogram and arteriogram of the right leg with stenting of the left common iliac artery, atherectomy and drug coated balloon angioplasty of the right common femoral artery and proximal superficial femoral artery, atherectomy and drug coated balloon angioplasty of the occluded right distal superficial femoral artery stent, atherectomy and drug coated balloon angioplasty of the right tibial -peroneal trunk. She has done well and has a palpable dorsalis pedis pulse and biphasic flow in both vessels at the ankle of the right leg. She will be discharged on her usual medications to include Plavix. She will follow up in one week and at that time we will schedule her for intervention of the left leg. She will also be given prescription for Percocet, 5 mg tablets, one tablet every 6 hours PRN pain. Vital Signs: Vital Signs (72 hours) 11/30/22 00:04 11/27/22 12:00 11/27/22 12:24 Temperature 97.1 F L 99.6 F Pulse Rate 63 Pulse Rate [Left] 60 Respiratory Rate 25 H 22 20 Blood Pressure 128/89 Blood Pressure [Left Arm] 110/64 Blood Pressure [Right Arm] O2 Sat by Pulse Oximetry 97 94 L Oxygen Delivery Method Room Air 11/27/22 13:24 11/27/22 14:20 11/27/22 16:00 Temperature 98.3 F Pulse Rate Pulse Rate [Left] 60 Respiratory Rate 20 20 20 Blood Pressure Blood Pressure [Left Arm] 110/60 Blood Pressure [Right Arm] O2 Sat by Pulse Oximetry 95 Oxygen Delivery Method Room Air 11/27/22 15:20 11/27/22 18:05 11/27/22 19:00 Temperature Pulse Rate Pulse Rate [Left] Respiratory Rate 18 20 Blood Pressure Blood Pressure [Left Arm] Blood Pressure [Right Arm] O2 Sat by Pulse Oximetry Oxygen Delivery Method Room Air 11/27/22 19:05 11/28/22 00:13 11/27/22 20:00 Temperature 98.4 F Pulse Rate Pulse Rate [Left] 68 Respiratory Rate 20 16 20 Blood Pressure Blood Pressure [Left Arm] Blood Pressure [Right Arm] 105/65 O2 Sat by Pulse Oximetry 94 L Oxygen Delivery Method Room Air 11/27/22 20:55 11/28/22 00:00 11/28/22 01:13 Temperature 97.4 F L Pulse Rate 84 Pulse Rate [Left] 56 L Respiratory Rate 18 16 Blood Pressure Blood Pressure [Left Arm] Blood Pressure [Right Arm] 110/56 O2 Sat by Pulse Oximetry 99 97 Oxygen Delivery Method Room Air 11/28/22 04:00 11/28/22 07:00 11/28/22 08:12 Temperature 97.8 F Pulse Rate Pulse Rate [Left] 59 L Respiratory Rate 18 Blood Pressure Blood Pressure [Left Arm] Blood Pressure [Right Arm] 123/75 O2 Sat by Pulse Oximetry 95 Oxygen Delivery Method Room Air Room Air Room Air 11/28/22 08:12 11/28/22 10:35 11/28/22 08:00 Temperature 97.8 F Pulse Rate 67 Pulse Rate [Left] 72 Respiratory Rate 20 20 Blood Pressure Blood Pressure [Left Arm] Blood Pressure [Right Arm] 107/55 O2 Sat by Pulse Oximetry 95 99 Oxygen Delivery Method Room Air 11/28/22 12:00 11/28/22 11:35 11/28/22 16:00 Temperature 97.6 F 98.4 F Pulse Rate Pulse Rate [Left] 68 70 Respiratory Rate 20 20 20 Blood Pressure Blood Pressure [Left Arm] Blood Pressure [Right Arm] 119/56 124/58 O2 Sat by Pulse Oximetry 94 L 94 L Oxygen Delivery Method Room Air Room Air 11/28/22 18:02 11/28/22 19:02 11/28/22 20:25 Temperature Pulse Rate 76 Pulse Rate [Left] Respiratory Rate 20 19 Blood Pressure Blood Pressure [Left Arm] Blood Pressure [Right Arm] O2 Sat by Pulse Oximetry 98 Oxygen Delivery Method 11/28/22 20:36 11/28/22 23:56 11/28/22 19:00 Temperature Pulse Rate Pulse Rate [Left] Respiratory Rate 16 Blood Pressure Blood Pressure [Left Arm] Blood Pressure [Right Arm] O2 Sat by Pulse Oximetry Oxygen Delivery Method Room Air Room Air 11/28/22 20:00 11/28/22 23:59 11/29/22 00:56 Temperature 98.1 F 98.1 F Pulse Rate Pulse Rate [Left] 68 59 L Respiratory Rate 18 20 16 Blood Pressure Blood Pressure [Left Arm] 131/62 Blood Pressure [Right Arm] 118/62 O2 Sat by Pulse Oximetry 94 L 95 Oxygen Delivery Method Room Air Room Air 11/29/22 04:00 11/29/22 07:00 11/29/22 08:00 Temperature 98.2 F 98.6 F Pulse Rate Pulse Rate [Left] 64 85 Respiratory Rate 18 20 Blood Pressure Blood Pressure [Left Arm] 144/66 Blood Pressure [Right Arm] 174/72 O2 Sat by Pulse Oximetry 95 93 L Oxygen Delivery Method Room Air Room Air 11/29/22 08:36 11/29/22 12:00 11/29/22 14:23 Temperature 98.0 F Pulse Rate 67 66 Pulse Rate [Left] 79 Respiratory Rate 20 17 Blood Pressure 135/77 Blood Pressure [Left Arm] Blood Pressure [Right Arm] 185/81 O2 Sat by Pulse Oximetry 94 L 92 L 95 Oxygen Delivery Method Nasal Cannula 11/29/22 16:10 11/29/22 19:05 11/29/22 20:18 Temperature 98.7 F Pulse Rate Pulse Rate [Left] 69 Respiratory Rate 16 20 16 Blood Pressure Blood Pressure [Left Arm] Blood Pressure [Right Arm] 112/54 O2 Sat by Pulse Oximetry 96 Oxygen Delivery Method 11/29/22 19:00 11/29/22 20:00 11/29/22 20:49 Temperature 98.7 F Pulse Rate Pulse Rate [Left] 70 Respiratory Rate 28 H Blood Pressure Blood Pressure [Left Arm] Blood Pressure [Right Arm] 142/66 O2 Sat by Pulse Oximetry 97 Oxygen Delivery Method Room Air Room Air Room Air 11/29/22 20:51 11/29/22 21:18 11/29/22 22:00 Temperature 97.1 F L Pulse Rate 68 Pulse Rate [Left] 63 Respiratory Rate 16 25 H Blood Pressure Blood Pressure [Left Arm] Blood Pressure [Right Arm] 128/89 O2 Sat by Pulse Oximetry 98 97 Oxygen Delivery Method Room Air 11/30/22 00:00 11/30/22 04:00 11/30/22 05:06 Temperature 97.1 F L 97.6 F Pulse Rate Pulse Rate [Left] 65 60 Respiratory Rate 25 H 20 18 Blood Pressure Blood Pressure [Left Arm] Blood Pressure [Right Arm] 92/51 126/61 O2 Sat by Pulse Oximetry 95 95 Oxygen Delivery Method Room Air Room Air 11/30/22 06:03 11/30/22 08:27 11/30/22 08:27 Temperature Pulse Rate 73 Pulse Rate [Left] Respiratory Rate 18 18 Blood Pressure Blood Pressure [Left Arm] Blood Pressure [Right Arm] O2 Sat by Pulse Oximetry 98 Oxygen Delivery Method Room Air 11/30/22 10:12 11/30/22 07:00 11/30/22 08:00 Temperature 97.9 F Pulse Rate Pulse Rate [Left] 65 Respiratory Rate 19 20 Blood Pressure Blood Pressure [Left Arm] Blood Pressure [Right Arm] 90/53 O2 Sat by Pulse Oximetry 95 Oxygen Delivery Method Room Air Room Air Labs: Laboratory Last Values WBC 7.0 X10^3/uL (3.6-10.0) 11/30/22 05:16 RBC 3.24 X10^6/uL (3.5-5.4) L 11/30/22 05:16 Hgb 10.0 g/dL (12.0-16.0) L 11/30/22 05:16 Hct 29.7 % (36.0-47.0) L 11/30/22 05:16 MCV 91.7 fL (80.0-100.0) 11/30/22 05:16 MCH 31.0 pg (27.0-34.0) 11/30/22 05:16 MCHC 33.8 g/dL (33.0-35.0) 11/30/22 05:16 RDW 15.2 % (11.6-16.5) 11/30/22 05:16 Plt Count 238 X10^3/uL (150.0-450.0) 11/30/22 05:16 MPV 6.8 fL (7.4-11.0) L 11/30/22 05:16 Neut % (Auto) 68.2 % (42.0-75.0) 11/30/22 05:16 Lymph % (Auto) 19.9 % (21.0-51.0) L 11/30/22 05:16 [place] % (Auto) 5.9 % (0.0-13.0) 11/30/22 05:16 Eos % (Auto) 5.3 % (0.9-2.9) H 11/30/22 05:16 Baso % (Auto) 0.7 % (0.2-1.0) 11/30/22 05:16 Neut # (Auto) 4.8 x10^3/uL (2.2-4.8) 11/30/22 05:16 Lymph # (Auto) 1.4 X10^3/uL (1.3-2.9) 11/30/22 05:16 [place] # (Auto) 0.4 x10^3/uL (0.3-0.8) 11/30/22 05:16 Eos # (Auto) 0.4 x10^3/uL (0.0-0.2) H 11/30/22 05:16 Baso # (Auto) 0.1 X10^3/uL (0.0-0.1) 11/30/22 05:16 Absolute Nucleated RBC 0.0 /100WBC 11/30/22 05:16 PT 13.4 SECONDS (11.8-14.3) 11/25/22 13:45 INR Target Range - 11/25/22 13:45 INR 1.04 (0.8-1.3) 11/25/22 13:45 APTT 27.6 SECONDS (22.9-36.5) 11/25/22 13:45 PTT Comment - 11/25/22 13:45 Sodium 138 mmol/L (136-145) 11/30/22 05:16 Corrected Sodium TNP 11/30/22 05:16 Potassium 3.8 mmol/L (3.5-5.1) 11/30/22 05:16 Chloride 101 mmol/L (98-107) 11/30/22 05:16 Carbon Dioxide 29.9 mmol/L (21-32) 11/30/22 05:16 BUN 10 mg/dL (7-18) 11/30/22 05:16 Creatinine 0.88 mg/dL (0.55-1.02) 11/30/22 05:16 Est GFR (MDRD) Af Amer > 60 (>60) 11/30/22 05:16 Est GFR (MDRD) Non-Af > 60 (>60) 11/30/22 05:16 Glucose 80 mg/dL (65-99) 11/30/22 05:16 Calcium 8.3 mg/dL (8.5-10.1) L 11/30/22 05:16 Corrected Calcium 8.6 mg/dL (8.5-10.1) 11/29/22 04:40 Magnesium 2.1 mg/dL (2.0-2.9) 11/30/22 05:16 Total Bilirubin 0.20 mg/dL (0.2-1.0) 11/29/22 04:40 AST 13 Units/L (15-37) L 11/29/22 04:40 ALT 9 Units/L (12-78) L 11/29/22 04:40 Alkaline Phosphatase 58 Units/L (46-116) 11/29/22 04:40 Total Protein 5.7 g/dL (6.4-8.2) L 11/29/22 04:40 Albumin 2.9 g/dL (3.4-5.0) L 11/29/22 04:40 Globulin 2.8 g/dL (2.5-4.5) 11/29/22 04:40 Albumin/Globulin Ratio 1.0 Ratio (1.1-2.1) L 11/29/22 04:40 Reason For Visit: CRITICAL ISHEMIC RIGHT LEG Discharge Date Discharge Date: 11/30/22 Discharge Diagnosis All Active Problems (Updated 11/29/22 @ 18:01 by BETO MONTAÑO) Preop cardiovascular exam (Acute) CAD (coronary artery disease) (Acute) Aortic stenosis (Acute) Atherosclerosis of [place] arteries of extremities with rest pain, left leg (Acute) Atherosclerosis of [place] arteries of extremities with rest pain, right leg (Acute) Chronic ischemic heart disease, unspecified (Acute) Bilateral carotid artery stenosis (Acute) Gastro-esophageal reflux disease without esophagitis (Acute) Chronic obstructive pulmonary disease, unspecified (Acute) Tobacco abuse (Acute) Essential (primary) hypertension (Acute) Plan of Treatment: Continue with present treatment and follow up plan. Pt is to keep follow up appointment as instructed and take medications as ordered. Discharge Medications Discharge Medications: sulfamethoxazole [From Bactrim] Adverse Reaction (Verified 11/25/22 13:28) trimethoprim [From Bactrim] Adverse Reaction (Verified 11/25/22 13:28) CONTINUE taking the following medications albuterol sulfate 90 mcg/actuation aerosol inhaler 1 inh inhalation Q6H 11/25/22 [History] budesonide 160 mcg-glycopyr 9 mcg-formot 4.8 mcg/actuation HFA inhaler (Breztri Aerosphere) 2 inh inhalation BID 11/25/22 [History] buspirone 15 mg tablet 15 mg PO BID 11/25/22 [History] cholecalciferol (vitamin D3) 125 mcg (5,000 unit) tablet (Vitamin D3) 125 mcg PO DAILY 11/25/22 [History] citalopram 40 mg tablet 40 mg PO QDAY 11/25/22 [History] clopidogrel 75 mg tablet 75 mg PO QDAY 11/25/22 [History] famotidine 40 mg tablet 40 mg PO BID 11/25/22 [History] gabapentin 600 mg tablet 1,200 mg PO TID 11/25/22 [History] hydrocodone 10 mg-acetaminophen 325 mg tablet 1 tab PO TID PRN 11/25/22 [History] meloxicam 7.5 mg tablet 7.5 mg PO QDAY 11/25/22 [History] metoprolol tartrate 25 mg tablet 25 mg PO BID 11/25/22 [History] montelukast 10 mg tablet 10 mg PO QDAY 11/25/22 [History] omeprazole 40 mg capsule,delayed release 40 mg PO BID 11/25/22 [History] simvastatin 40 mg tablet 40 mg PO QPM 11/25/22 [History] tizanidine 4 mg tablet 4 mg PO TID PRN 11/25/22 [History] New Prescriptions oxycodone-acetaminophen 5 mg-325 mg tablet (Percocet) 1 tab PO Q6H PRN #20 tabs 11/30/22 [Rx] Discharge Disposition Assessment: see hospital course Discharge Plan Discharge Plan Hospital Course: 62 year old female who was seen in my office on November 24 complaining of severe disabling rest pain of the right leg. She had no audible or palpable pulses of the right leg. She also has left leg rest pain with no pulses were noted. Past history of coronary artery disease. She was admitted and underwent routine laboratory evaluation and CT angiogram showing severe disease of the iliac arteries bilaterally ,severe stenosis right common femoral artery, occluded right superficial femoral artery stent and occluded right popliteal and tibial peroneal trunk arteries. The left leg also shows significant disease of the superficial femoral and popliteal arteries . She had cardiac evaluation by .She had a cardiac catherization in September of this year with shows an occluded right coronary artery but otherwise was normal. Ejection fraction is 49%. She is a chronic smoker and was wheezing significantly. We consulted her PCP, Kelsey Montaño who treated and improved her respiratory status .She was taken to the operating Suite on November 29 where she aortogram and arteriogram of the right leg with stenting of the left common iliac artery, atherectomy and drug coated balloon angioplasty of the right common femoral artery and proximal superficial femoral artery, atherectomy and drug coated balloon angioplasty of the occluded right distal superficial femoral artery stent, atherectomy and drug coated balloon angioplasty of the right tibial -peroneal trunk. She has done well and has a palpable dorsalis pedis pulse and biphasic flow in both vessels at the ankle of the right leg. She will be discharged on her usual medications to include Plavix. She will follow up in one week and at that time we will schedule her for intervention of the left leg. She will also be given prescription for Percocet, 5 mg tablets, one tablet every 6 hours PRN pain. Patient Disposition: 01 HOME, SELF-CARE Condition: Stable Health Concerns: Post Hospitalization: new medications and changes needed to prevent readmission or further decline. Pt educated and given instructions on all concerns. Care Plan Goals: Problem: Pain/Alteration in Comfort Goal: Improve/ Resolve Pain; Achieve Pain Tolerance Instructions: Take pain medications as prescribed. Contact your primary care provider if your pain is unrelieved or worsens. Follow up with primary care provider as directed. Plan of Treatment: Continue with present treatment and follow up plan. Pt is to keep follow up appointment as instructed and take medications as ordered. Assessment: see hospital course Prescription drug monitoring program results: PDMP reviewed with concerns identified Prescriptions: New oxycodone-acetaminophen [Percocet] 5-325 mg tablet 1 tab PO Q6H MDD 4 PRNQty: 20 0RF Continued gabapentin 600 mg tablet 1,200 mg PO TID citalopram 40 mg tablet 40 mg PO QDAY tizanidine 4 mg tablet 4 mg PO TID PRN famotidine 40 mg tablet 40 mg PO BID clopidogrel 75 mg tablet 75 mg PO QDAY hydrocodone-acetaminophen 10-325 mg tablet 1 tab PO TID PRN omeprazole 40 mg capsule,delayed release(DR/EC) 40 mg PO BID simvastatin 40 mg tablet 40 mg PO QPM meloxicam 7.5 mg tablet 7.5 mg PO QDAY montelukast 10 mg tablet 10 mg PO QDAY albuterol sulfate 90 mcg/actuation HFA aerosol inhaler 1 inh inhalation Q6H buspirone 15 mg tablet 15 mg PO BID metoprolol tartrate 25 mg tablet 25 mg PO BID cholecalciferol (vitamin D3) [Vitamin D3] 125 mcg (5,000 unit) Tablet 125 mcg PO DAILY Breztri Aerosphere 160-9-4.8 mcg/actuation HFA aerosol inhaler 2 inh inhalation BID Follow ups/Referrals Follow ups/Referrals: BETO MONTAÑO [Primary Care Provider] - 12/07/22 10:30 am Navid Kennedy [STAFF PHYSICIAN] - 12/08/22 3:30 pm Instructions Instructions: Endovascular Therapy for Peripheral Vascular Disease, Care After, Monitored Anesthesia Care, Care After Activity Restrictions/Additional Instructions: POST OPERATIVE INSTRUCTIONS: (1) A RESPONSIBLE ADULT SHOULD REMAIN WITH YOU TODAY, YOU SHOULD BE ASSISTED TO THE BATHROOM FOR 6-8 HOURS. REST QUIETLY THE REMAINDER OF THE DAY. (2) DEEP BREATHING AND COUGHING EXERCISES FOR THE NEXT 6-8 HOURS. (3)SMOKE ONLY IF SOMEONE IS WITH YOU FOR THE NEXT 12 HOURS. (4) DIET TOLERATED, DRINK PLENTY OF WATER. (5) DO NOT DRIVE YOUR AUTOMOBILE OR OPERATE MACHINERY FOR 12-18 HOURS AFTER RECEIVING A GENERAL ANESTHETIC OR WHILE TAKING NARCOTIC PAIN MEDICATION. (6) SOME ANESTHETIC AGENTS AND MEDICATION TAKEN FOR PAIN MAY CAUSE NAUSEA. IF NAUSEA PERSISTS FOR SEVERAL HOURS AT HOME, CALL YOUR DOCTOR. (7) LIGHT ACTIVITIES. (8) OBSERVE OPERATIVE AREA FOR SIGNS OF INFECTION: REDNESS, SWELLING, FOUL ODOR, DRAINAGE, AND NOTIFY FOR ANY CONCERNS OR FEVER OVER 101.0. (9) KEEP OPERATIVE AREA CLEAN AND DRY. YOU MAY REMOVE DRESSING AFTER 24 HOURS AND SHOWER/BATH WITH ANTIBACTERIAL SOAP. (10) RESUME ALL PREVIOUS MEDICATIONS PRESCRIBED BY YOUR DOCTOR. (11) TAKE PAIN MEDICATIONS PRESCRIBED. (12) OBSERVE AFFECTED AREA FOR CIRCULATION, CHANGE OF COLOR, NUMBNESS OR TINGLING, COLDNESS, INCREASED PAIN, OR BLEEDING. FOR ANY COMPLICATIONS PLEASE CALL DR. KENNEDY @ PRIOR TO GOING TO EMERGENCY DEPARTMENT. FOLLOW UP WITH DR. KENNEDY ON Stand Alone Forms: Post Hospital Follow Up Care
[2022-11-30 11:55] VITALS: RESP 18
[2022-11-30] MEDS ORDERED: K-DUR TAB 20 MEQ PO SCH (21:00)
--- NOTE | 2022-12-01 22:06 | DR.OPNOTE ---
OP NOTE Pre-Op Diagnosis: Critical ischemia both or extremities Post-Op Diagnosis: same Procedure Date Date Of Procedure: 11/29/22 Procedure: PROCEDURE: DIAGNOSTIC AORTOGRAM, DIAGNOSTIC ARTERIOGRAM RIGHT LEG NARRATIVE : The patient was taken to the operative suite and placed in the supine position. The left groin and entire right leg were prepped and draped in sterile fashion. The patient was given intravenous sedation supervised by myself. Time out for the procedure obtained. Ultrasound used to identify the left femoral artery and the skin overlying it infiltrated with 0.5% Marcaine. Ultrasound then used to guide puncture of the left femoral artery and a 0.012 inch guide wire was placed. Incision made over the guide wire at the skin edge with a # 11 knife blade and a micro sheath placed over the guide wire into the left femoral artery The small guidewire exchanged for a 0.035 inch [employer] glide wire and the micro sheath exchanged for a 5 Fr vascular sheath. Patient given 5000 units of intravenous heparin. 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 The 5 Fr sheath in the left groin then exchanged for a 7 Fr destination sheath which was parked in the distal right external iliac artery .[place] catheter and the guide wire were used to traverse the arteries of the right leg and the completely occluded right superficial femoral artery stents , occluded right popliteal artery and occluded right tibial peroneal trunk ultimately ending in the right peroneal artery . This was selective catheterization. 0.035 inch wire removed and exchanged for a 0.014 inch wire using the [place] catheter . Over this wire we placed the [employer] atherectomy device and performed atherectomy of the diseased right common femoral artery, right superficial femoral artery, completely occluded distal right superficial femoral artery stents, completely occluded right popliteal artery , and occluded right tibial-peroneal trunk. At this point we performed drug-coated balloon angioplasty of the right tibial peroneal trunk using a 4 mm by 100 mm [employer] Pender drug-coated balloon, and drug-coated balloon angioplasty of the occluded right popliteal artery using a 5 mm by 200 mm [employer] Pender drug-coated balloon ,atherectomy and drug-coated balloon angioplasty inside the occluded right superficial femoral stents with a 6 mm by 200 mm [employer] Pender drug-coated balloon, atherectomy and drug coated balloon angioplasty of the right common femoral artery with a 6 mm by 60 mm [employer] Pender drug-coated balloon. Post procedure arteriogram showed excellent flow throughout the entire right leg arteries with good run off except for the common femoral artery. We repeated angioplasty of the right common femoral artery using a 7 mm by 80 mm [employer] Pender drug-coated balloon. Post-procedure arteriogram looked excellent. We withdrew the destination sheath back into the distal left external iliac artery and repeat arteriogram showed severe disease of the proximal left common iliac artery lety eoff off. Over area of stenosis of the left common iliac artery we placed an 8 mm by 57 mm [employer] balloon expandable stent and deployed it . At the completion of this a follow up arteriogram showed excellent flow all the way to the right foot . An additional 3,000 units of Heparin was giving at one hour. At the end of the case 30 mg of intravenous Protamine was given. All wires and devices removed. The 7 Fr sheath had already been pulled back into the left iliac artery and a 0.035 inch wire placed. The destination sheath exchanged for an Angioseal device used to close the puncture of the left femoral artery. .Dressing applied to the left groin. The patient taken to same day surgery in good condition. Type of Anesthesia: Local (0.5% Marcaine) Anesthesia Comment: plus MAC Findings: greater than 80% since its to the left, iliac artery, severe stenosis right common femoral artery greater than 70%, completely occluded right superficial femoral artery stent, completely occluded right popliteal artery, completely occluded right tibial peroneal trunk, three of us will run off of the right leg Type of Fluids Used:: Lactated Ringers Total Amount of Fluid Infused:: 300 cc EBL: 150 cc Hardware: 8 mm by 57 mm [employer] left common iliac artery stent placed Complications:: none Needle/Sponge Count:: correct Disposition/Condition: Pt. tolerated procedure without difficulty. Patient taken back to the floor in stable condition.
== END 2022-11-30 12:40 | disposition home or self-care (01) | DRG 271 ==
LOC: EDBD → MED/SURG 12:13 → ICU 11-29 19:51
PROVIDERS: ADMIT Surgery; ATTEND Surgery